=== PATIENT | male | born 1990 | race Caucasian/White ===

== ENCOUNTER 2018-02-27 13:23 | Emergency (ER) | payer BC ==
[~2018-02-27] VITALS: Ht 170.2 cm; Wt 68.0 kg
== END 2018-02-27 15:15 | disposition home or self-care (01) ==
LOC: ED 13:23
DX: R10.11 Right upper quadrant pain (principal); R10.13 Epigastric pain; R11.0 Nausea
CPT/HCPCS: 80053; 81001; 82150; 83690; 85025; 96361; 96374; 96375; 99283; J1885; J2405; J7030